=== PATIENT | male | born 1955 | race Caucasian/White ===

== ENCOUNTER 2023-12-15 14:40 | Inpatient (IN) | payer OTHER ==
[2023-12-15 15:25] VITALS: BMI 23.9
[2023-12-15] MEDS ORDERED: DICYCLOMINE HCL 10 MG CAPSULE PO PRN (16:27)
[2023-12-15] MEDS ORDERED: METHOCARBAMOL 500 MG TABLET PO PRN (16:27)
[2023-12-15] MEDS ORDERED: NALOXONE (NARCAN) HCL 4 MG/0.1 ML SPRAY NS PRN (16:27)
[2023-12-15] MEDS ORDERED: BENZONATATE 200 MG CAPSULE PO PRN (16:27)
[2023-12-15] MEDS ORDERED: NALOXONE HCL 0.4 MG/ML VIAL IM PRN (16:27)
[2023-12-15] MEDS ORDERED: NICOTINE POLACRILEX 2 MG GUM BUC PRN (16:27)
[2023-12-15] MEDS ORDERED: BENZOCAINE/MENTHOL (CHLORASEPTIC ) LOZENGE MM PRN (16:27)
[2023-12-15] MEDS ORDERED: MAGNESIUM HYDROX 2400MG/30ML ORAL SUSPENSION 30 ML CUP PO PRN (16:27)
[2023-12-15] MEDS ORDERED: IBUPROFEN 400 MG TABLET (FP) PO PRN (16:27)
[2023-12-15] MEDS ORDERED: guaiFENesin 600 MG TABLET.ER (FP) PO PRN (16:27)
[2023-12-15] MEDS ORDERED: MAG HYDROX/AL HYDROX/SIMETH 30 ML UNIT-DOSE CUP PO PRN (16:27)
[2023-12-15] MEDS ORDERED: BISMUTH SUBSALICYLATE 524 MG/30 ML PO PRN (16:27)
[2023-12-15] MEDS ORDERED: ACETAMINOPHEN 325 MG TABLET (FP) PO PRN (16:27)
[2023-12-15] MEDS ORDERED: LOPERAMIDE HCL 2 MG CAPSULE PO PRN (16:27)
[2023-12-15] MEDS ORDERED: IBUPROFEN 600 MG TABLET (FP) PO PRN (16:27)
[2023-12-15] MEDS ORDERED: ONDANSETRON *ODT* 4 MG TABLET SL PRN (16:27)
[2023-12-15] MEDS ORDERED: POLYETHYLENE GLYCOL (HEALTHYLAX) 3350 17 GM PACKET PO PRN (16:27)
[2023-12-15] MEDS ORDERED: LISINOPRIL 10 MG TABLET ONE (18:00)
[2023-12-15] MEDS ORDERED: amLODIPine BESYLATE 5 MG TABLET (FP) ONE (18:00)
[2023-12-15] MEDS ORDERED: methaDONE HCL 10 MG TABLET (FOR DETOX USE ONLY) ONE (18:00)
[2023-12-15] MEDS: LISINOPRIL 10 MG TABLET PO SCH (18:08)
[2023-12-15] MEDS: methaDONE HCL 40 MG DISPERSABLE TABLET PO ONE (18:08)
[2023-12-15] MEDS: amLODIPine BESYLATE 10 MG TABLET (FP) PO SCH (18:08)
[2023-12-15] MEDS: NICOTINE 7 MG/24 HOURS TOPICAL PATCH TD SCH (19:01)
[2023-12-15] MEDS: cloNIDine HCL 0.1 MG TABLET PO PRN (19:14)
[2023-12-15] MEDS: clonazePAM 0.5 MG ODT TABLETS SL ONE (20:17)
[2023-12-15] MEDS: QUEtiapine FUMARATE 50 MG TABLET PO ONE (20:17)
[2023-12-15] MEDS: THIAMINE 100 MG TABLET PO SCH (22:10)
[2023-12-15] MEDS: MELATONIN 5 MG TABLETS PO SCH (22:10)
[2023-12-16] MEDS: methaDONE HCL 40 MG DISPERSABLE TABLET PO SCH (09:55)
[2023-12-16] MEDS: PANTOPRAZOLE 40 MG TABLET PO SCH (09:55)
[2023-12-16] MEDS: PRENATAL VITAMINS W/ FOLIC ACID TABLET (FP) PO SCH (09:55)
[2023-12-16] MEDS: metoPROLOL SUCCINATE 25 MG TAB.SR.24H (FP) PO SCH (09:55)
[2023-12-16] MEDS: cloNIDine HCL 0.1 MG TABLET PO SCH (09:55)
[2023-12-16 13:45] LABS: HEMATOCRIT 36.8 % (35.4-49); HEMOGLOBIN 12.6 GM/dL (11.7-16.9); MCH 31.9 pg (25.7-33.7); MCHC 34.1 g/dl (32.0-35.9); MEAN CELL VOLUME 93.5 fl (80-96); MEAN PLT VOLUME 9.1 fl (7.5-11.1); PLATELET COUNT 113 10^3/uL (134-434); RBC 3.93 M/mm3 (4.00-5.60); RDW 14.5 % (11.9-15.9); WHITE BLOOD COUNT 9.4 K/mm3 (4.0-10.0)
[2023-12-16 13:46] LABS: CHLORIDE 102 mmol/L (98-107); POTASSIUM 3.5 mmol/L (3.5-5.1); SODIUM 139 mmol/L (136-145)
[2023-12-16 13:47] LABS: ALBUMIN 3.7 g/dl (3.4-5.0); GLUCOSE,RANDOM 101 mg/dL (74-106)
[2023-12-16 13:49] LABS: ANION GAP 5 mmol/L (4-13); CALCIUM 9.7 mg/dL (8.5-10.1); CO2 32 mmol/L (21-32)
[2023-12-16 13:50] LABS: BLOOD UREA NITROGEN 23.7 mg/dL (7-18)
[2023-12-16 13:52] LABS: SGPT/ALT 13 U/L (13-61)
[2023-12-16 13:53] LABS: CREATININE 1.9 mg/dL (0.55-1.3); SGOT/AST 13 U/L (15-37)
[2023-12-16 13:54] LABS: TOT PROT 6.9 g/dl (6.4-8.2)
[2023-12-16 13:55] LABS: ALK PHOS 68 U/L (45-117)
[2023-12-16 16:02] LABS: BILIRUBIN,TOTAL 0.7 mg/dL (0.2-1)
[2023-12-16] MEDS: QUEtiapine FUMARATE 50 MG TABLET PO SCH (22:23)
[2023-12-16] MEDS: clonazePAM 0.5 MG ODT TABLETS SL SCH (22:23)
[2023-12-18] MEDS ORDERED: cloNIDine HCL 0.1 MG TABLET PO PRN
[2023-12-18] MEDS: methaDONE HCL 10 MG TABLET PO ONE (10:02)
[2023-12-19] MEDS: NALOXONE (NYS OPIOID OVERDOSE PROGRAM) 4 MG/0.1 ML SPRAY NS ONE (13:08)
[2023-12-20] MEDS: hydrOXYzine PAMOATE 25 MG CAPSULE (FP) PO PRN (09:58)
[2023-12-20] MEDS: methaDONE HCL 10 MG TABLET PO ONE (09:58)
[2023-12-21] MEDS: methaDONE HCL 10 MG TABLET PO ONE (09:45)
[2023-12-21] MEDS: LOSARTAN POTASSIUM 25 MG TABLET PO ONE (19:26)
[2023-12-22 06:08] VITALS: RESP 16
[2023-12-22] MEDS: NALOXONE (NYS OPIOID OVERDOSE PROGRAM) 4 MG/0.1 ML SPRAY NS PRN (09:11)
[2023-12-22 09:44] VITALS: BP 131/84; PULSE 89; TEMP 97.6
[2023-12-22] MEDS: methaDONE HCL 10 MG TABLET PO ONE (09:55)
[2023-12-22] MEDS: LOSARTAN POTASSIUM 25 MG TABLET PO SCH (09:55)
== END 2023-12-22 09:13 | disposition home or self-care (01) | DRG 897 ==
LOC: YASAS 14:40 → Y3N 17:41
PROVIDERS: ADMIT Allergy & Immunology; ATTEND Surgery
PROC: HZ2ZZZZ Detoxification Services for Substance Abuse Treatment (ICD-10-PCS; principal; 2023-12-15)
DX: F11.23 Opioid dependence with withdrawal (principal); F14.20 Cocaine dependence, uncomplicated; N17.9 Acute kidney failure, unspecified; F17.210 Nicotine dependence, cigarettes, uncomplicated; F41.9 Anxiety disorder, unspecified; F43.10 Post-traumatic stress disorder, unspecified; F19.24 Other psychoactive substance dependence with psychoactive substance-induced mood disorder; D69.6 Thrombocytopenia, unspecified; I10 Essential (primary) hypertension; K21.9 Gastro-esophageal reflux disease without esophagitis
CPT/HCPCS: 36415; 71046-TC-FY; 80053; 80305; 80307; 85027; 86780; 93005; 93010